=== PATIENT | male | born 1990 | race Caucasian/White ===

== ENCOUNTER → 2017-08-19 | Outpatient (CLI) | payer BC, OTHER ==
[2017-08-19 18:17] LABS: BASO % 0.3 %; BASO ABS # 0.02 K/uL (0-0.2); COMPLETE YES; EOS % 0.9 %; HEMATOCRIT 43.7 % (42-52); IG% 0.3 %; LYMPH % 36.6 %; LYMPH ABS # 2.53 K/uL (1.2-3.4); MEAN CELL VOLUME 84.7 fL (80-100); MEAN CORPUSCULAR HEMOGLOBIN 30.4 pg (25-34); MEAN CORPUSCULAR HGB CONC 35.9 g/dl (32-36); MEAN PLATELET VOLUME 10.6 fL (7.4-10.4); MONO % 7.1 %; NEUT % 54.8 %; PLATELET COUNT 286 K/uL (130-400); RED BLOOD COUNT 5.16 M/uL (4.7-6.1); WHITE BLOOD COUNT 6.92 K/uL (4.8-10.8)
[2017-08-19 18:39] LABS: BLOOD UREA NITROGEN 11 mg/dl (7-18); BUN/CREATININE RATIO 12.8 (10-20); CALCIUM 9.2 mg/dl (8.5-10.1); CARBON DIOXIDE 27 mmol/L (21-32); CHLORIDE 105 mmol/L (98-107); CREATININE 0.85 mg/dl (0.60-1.40); GLUCOSE 87 mg/dl (70-99); SODIUM 138 mmol/L (136-145)
[2017-08-19 18:49] LABS: ALB/GLOB RATIO 1.3 (0.9-2); ALKALINE PHOSPHATASE 75 U/L (45-117); ALT/SGPT 41 U/L (12-78); AST/SGOT 24 U/L (15-37); CHOLESTEROL 177 mg/dl (0-200)
== END | disposition home or self-care (01) ==
LOC: C.LABSPEC 17:38
PROVIDERS: ATTEND Internal Medicine
DX: R53.83 Other fatigue (principal); E66.09 Other obesity due to excess calories; E78.5 Hyperlipidemia, unspecified

== ENCOUNTER → 2017-12-17 | Outpatient (CLI) | payer BC ==
--- NOTE | 2017-12-17 15:21 | ECHOCARDIOGRAM REPORT ---
*NOTICE TO RECEIVING [employer]ENCY This information is strictly Confidential and protected under [place] law. [place] law prohibits you from making any further disclosure of this information unless further disclosure is expressly permitted by the written consent of the person to whom it pertains or is authorized by law. A general authorization for the release of medical or other information is not sufficient for this purpose. Hospital accepts no responsibility if the information is made available to any other person, INCLUDING THE PATIENT. Interpretation Summary * Name: JAVON GALVEZ Study Date: 12/17/2017 01:01 PM * Patient Location: [facility], [place], [facility] HR: 95 * : 1990 (M/d/yyyy) Gender: Male Height: 72 in * Age: 27 yrs Ethnicity: [place] Weight: 225 lb * Ordering Physician: Wilfrido Bruner * Referring Physician: Wilfrido Bruner * Performed By: [facility] * * Reason For Study: SYSTOLIC MURMUR * BSA: 2.2 m2 * -- Conclusions -- * Left ventricular systolic function is normal. * No regional wall motion abnormalities noted. * Ejection Fraction = 55-60%. * There is borderline concentric left ventricular hypertrophy. * There is mild mitral regurgitation. Procedure Details * A complete two-dimensional transthoracic echocardiogram was performed (2D, M-mode, Doppler and color flow Doppler). Left Ventricle * The left ventricle is normal in size. * There is borderline concentric left ventricular hypertrophy. * Left ventricular systolic function is normal. * Ejection Fraction = 55-60%. * No regional wall motion abnormalities noted. Right Ventricle * The right ventricle is grossly normal size. * The right ventricular systolic function is qualitatively normal. Atria * The left atrial size is normal. * Right atrial size is normal. Mitral Valve * The mitral valve anatomy is normal. * There is no mitral valve stenosis. * There is mild mitral regurgitation. Tricuspid Valve * The tricuspid valve anatomy is normal. * There is trace tricuspid regurgitation. Aortic Valve * The aortic valve is normal in structure and function. * No hemodynamically significant valvular aortic stenosis. * No aortic regurgitation is present. Pulmonic Valve * The pulmonary valve is not well seen, but the Doppler examination is normal without significant regurgitation or stenosis. Great Vessels * The aortic root is normal size. * The pulmonary artery is not well visualized, but is probably normal size. Pericardium/Pleural * There is no pericardial effusion. Great Vessels * Normal inferior vena cava size and collapsability with sniff indicates a normal right atrial pressure of 3 mmHg MMode 2D Measurements and Calculations IVSd 1.6 cm IVSs 1.9 cm LVIDd 5.0 cm LVIDs 3.8 cm LVPWd 1.5 cm LVPWs 1.4 cm IVS/LVPW 1.1 FS 23.3 % EDV(Teich) 118.7 ml ESV(Teich) 63.6 ml EF(Teich) 46.4 % EDV(cubed) 125.7 ml ESV(cubed) 56.7 ml EF(cubed) 54.9 % % IVS thick 17.3 % % LVPW thick -2.83 % LV mass(C)d 338.2 grams LV mass(C)dI 151.0 grams/m\S\2 LV mass(C)s 260.5 grams LV mass(C)sI 116.3 grams/m\S\2 SV(Teich) 55.1 ml SI(Teich) 24.6 ml/m\S\2 SV(cubed) 69.0 ml SI(cubed) 30.8 ml/m\S\2 Ao root diam 2.8 cm Ao root area 6.3 cm\S\2 LA dimension 3.0 cm LA/Ao 1.1 LVOT diam 2.0 cm LVOT area 3.2 cm\S\2 LVAd ap4 30.3 cm\S\2 LVLd ap4 7.0 cm EDV(MOD-sp4) 104.3 ml EDV(sp4-el) 111.4 ml LVAs ap4 20.7 cm\S\2 LVLs ap4 6.0 cm ESV(MOD-sp4) 60.9 ml ESV(sp4-el) 60.7 ml EF(MOD-sp4) 41.6 % EF(sp4-el) 45.5 % LVAd ap2 38.7 cm\S\2 LVLd ap2 8.7 cm EDV(MOD-sp2) 139.6 ml EDV(sp2-el) 146.1 ml LVAs ap2 24.1 cm\S\2 LVLs ap2 7.0 cm ESV(MOD-sp2) 68.0 ml ESV(sp2-el) 70.9 ml EF(MOD-sp2) 51.3 % EF(sp2-el) 51.5 % LVLd %diff 19.5 % EDV(MOD-bp) 127.5 ml LVLs %diff 13.9 % ESV(MOD-bp) 67.4 ml EF(MOD-bp) 47.1 % SV(MOD-sp4) 43.4 ml SI(MOD-sp4) 19.4 ml/m\S\2 SV(MOD-sp2) 71.6 ml SI(MOD-sp2) 32.0 ml/m\S\2 SV(MOD-bp) 60.1 ml SI(MOD-bp) 26.8 ml/m\S\2 SV(sp4-el) 50.7 ml SI(sp4-el) 22.6 ml/m\S\2 SV(sp2-el) 75.2 ml SI(sp2-el) 33.6 ml/m\S\2 Doppler Measurements and Calculations MV E max liya 75.5 cm/sec MV A max liya 67.9 cm/sec MV E/A 1.1 MV P1/2t max liya 87.1 cm/sec MV P1/2t 71.3 msec MVA(P1/2t) 3.1 cm\S\2 MV dec slope 358.1 cm/sec\S\2 MV dec time 0.25 sec Ao V2 max 128.4 cm/sec Ao max PG 6.6 mmHg Ao max PG (full) 1.8 mmHg KAYLEEN(V,A) 2.7 cm\S\2 KAYLEEN(V,D) 2.7 cm\S\2 LV V1 max PG 4.8 mmHg LV V1 max 109.2 cm/sec PA V2 max 126.0 cm/sec PA max PG 6.3 mmHg
== END | disposition home or self-care (01) ==
LOC: C.CPL 12:54
PROVIDERS: ATTEND Internal Medicine
DX: R01.1 Cardiac murmur, unspecified (principal)